=== PATIENT | female | born 1955 | race Caucasian/White ===

== ENCOUNTER → 2016-07-03 | Outpatient (CLI) | payer MEDICARE ==
--- NOTE | 2016-07-04 08:42 | Diagnostic Imaging Report ---
Indication: COUGH Technique: 2 views of the chest Comparison: none. Findings: Lungs and pleural spaces are clear. Heart size is normal. Bones are unremarkable. Surgical clips are seen in the upper abdomen. Impression: No acute process
== END | disposition home or self-care (01) ==
LOC: RAD 15:49
DX: R05 Cough (principal)
CPT/HCPCS: 71020